=== PATIENT | female | born 1950 | race Caucasian/White ===

== ENCOUNTER → 2017-02-28 11:39 | Outpatient (CLI) | payer MEDICAID ==
[2014-10-14 14:26] VITALS: BMI 35.9
[~2017-02-28 11:39] MED LIST: BAYER CHEWABLE81 MG PO; HYDROCODONE-APA1 TAB PO; IBUPROFEN800 MG PO; NEXIUM40 MG PO; VENTOLIN HFA18 GM INH
== END | disposition home or self-care (01) ==
LOC: D.RAD 11:39
DX: M25.521 Pain in right elbow (principal); M25.532 Pain in left wrist

== ENCOUNTER 2017-03-26 05:21 | Day surgery (SDC) | payer MEDICAID ==
[2017-03-26 06:12] LABS: BASOPHILS 0.8 % (0-2); EOSINOPHILS 1.4 % (0-7); HEMATOCRIT 44.7 % (36.0-48.0); HEMOGLOBIN 15.1 g/dL (12-16); IMMATURE GRANULOCYTES 0.2 % (0-5); LYMPHOCYTES 32.4 % (15-50); MCH 32.5 pg (26.0-34.0); MCHC 33.8 g/dL (31.0-37.0); MCV 96.3 fL (80.0-100.0); MEAN PLATELET VOLUME 10.5 fL (7.4-10.4); MONOCYTES 6.9 % (2-11); NEUTROPHILS 58.3 % (40-80); PLATELET COUNT 222 10x3/uL (130-400); RBC 4.64 10x6/uL (4.00-5.40); RDW 11.7 % (11.5-14.5); WBC 6.4 10x3/uL (4.8-10.8)
[2017-03-26 06:20] LABS: ANION GAP 11.7 mmol/L (8-16); CALCIUM 9.5 mg/dL (8.5-10.1); CARBON DIOXIDE 28.8 mmol/L (21.0-32.0); CREATININE - SERUM 0.9 mg/dL (0.6-1.3); POTASSIUM - SERUM 3.5 mmol/L (3.5-5.1)
[2017-03-26] MEDS ORDERED: NORVASC10 MG PO (06:41)
[2017-03-26] MEDS ORDERED: VITAMIN D5000 UNIT PO (06:42)
[2017-03-26] MEDS ORDERED: ULTRAM50 MG PO (06:42)
[2017-03-26 06:43] VITALS: BP 104/63; BMI 32.7
--- NOTE | 2017-03-26 08:35 | NUR ---
PT REC'D TO ROOM, AWAKE, RESPONDS TO VERBAL STIMULI.
--- NOTE | 2017-03-26 09:05 | NUR ---
PT AMBULATED TO BR, VOIDED AND PASSED GAS. DIET PROVIDED.
--- NOTE | 2017-03-26 09:30 | NUR ---
D/C INSTRUCTIONS EXPLAINED TO PT. VOICED UNDERSTANDING. COPIES OF ALL GIVEN TO PT.
--- NOTE | 2017-03-26 09:40 | NUR ---
D/C'D HOME VIA W/C TO PRIVATE CAR.
--- NOTE | 2017-03-28 14:40 | OP ---
PATIENT NAME: JOEL WHITESIDE MEDICAL RECORD: [id number] :54 LOCATION:[facility] ADMISSION DATE: SURGEON: BASSEM RIOJAS DO DATE OF OPERATION: 03/26/2017 PROCEDURE: Colonoscopy with polypectomy. INDICATIONS FOR PROCEDURE: Screening for colorectal cancer with a history of chronic constipation, currently controlled with a daily stool softener. SCOPE: Olympus video pediatric colonoscope. MEDICATIONS: Propofol 600 mg IV per anesthesia. WITHDRAWAL TIME: 23 minutes. FINDINGS: Informed consent was given. The patient was made comfortable with the above medication. After reaching an adequate level of sedation by slow IV push, the patient was placed on her left side. A digital rectal examination was performed and was normal. The endoscope was then advanced under direct visualization through the rectum to the terminal ileum. The scope was slowly withdrawn. The mucosa was carefully examined. The prep quality was good. There were a total of 6 polyps on this examination. They were all benign appearing and sessile and measured and a ranged from 3-5 mm in diameter. All were removed using hot forceps in 1 piece and completely retrieved. Two polyps were located in the ascending colon, 2 polyps were located in the descending colon, 1 polyp was removed each from the sigmoid and the rectum. Retroflexion was performed in the rectum and visualization, a medium size, nonbleeding internal hemorrhoids. The scope was withdrawn from the patient. The patient tolerated the procedure well and there were no complications. ESTIMATED BLOOD LOSS: Minimal. IMPRESSION: 1. Multiple polyps as described above, removed using hot forceps. 2. Medium size, nonbleeding internal hemorrhoids. PLAN AND RECOMMENDATIONS: 1. Discharge home when recovery parameters are met. 2. Follow up biopsy specimen results. 3. Recommend high fiber diet. 4. Continue daily stools softener as needed for chronic constipation. 5. Recall colonoscopy in 2-3 years for continued surveillance with personal history of polyps for colorectal cancer screening purposes. TRANSINT:[id number] Voice Confirmation ID: [id number] DOCUMENT ID: [id number] OPERATIVE REPORT [id number] JOEL WHITESIDE BASSEM RIOJAS DO at 1440 CC: [id number] DICTATION DATE: 03/26/17829 WATER TREATMENT TECHNICIAN: 03/26/17 1029 [facility] 03/26/17 [facility] [address] [place] [address]
== END 2017-03-26 09:40 | disposition home or self-care (01) ==
LOC: D.OPS 05:21
PROVIDERS: Anesthesiology
DX: Z12.11 Encounter for screening for malignant neoplasm of colon (principal); K59.09 Other constipation; I10 Essential (primary) hypertension; J44.9 Chronic obstructive pulmonary disease, unspecified; G47.33 Obstructive sleep apnea (adult) (pediatric); Z01.812 Encounter for preprocedural laboratory examination; K63.5 Polyp of colon

== ENCOUNTER → 2017-10-02 16:44 | Outpatient (CLI) | payer MEDICARE ==
[~2017-10-02 16:44] MED LIST changes: +NORVASC10 MG PO; +ULTRAM50 MG PO; +VITAMIN D5000 UNIT PO
== END | disposition home or self-care (01) ==
LOC: D.RAD 16:44
DX: F17.210 Nicotine dependence, cigarettes, uncomplicated (principal); J44.9 Chronic obstructive pulmonary disease, unspecified; R05 Cough

== ENCOUNTER → 2018-09-17 09:57 | Outpatient (CLI) | payer MEDICARE | END | disposition home or self-care (01) | LOC: D.US 09:57 | PROVIDERS: ATTEND Emergency Medicine | DX: R55 Syncope and collapse (principal); I10 Essential (primary) hypertension; F17.200 Nicotine dependence, unspecified, uncomplicated ==

== ENCOUNTER → 2019-02-04 08:12 | Outpatient (CLI) | payer MEDICARE | END | disposition home or self-care (01) | LOC: D.US 08:12 | PROVIDERS: ATTEND Emergency Medicine | DX: E03.9 Hypothyroidism, unspecified (principal) ==

== ENCOUNTER → 2020-09-23 10:44 | Outpatient (CLI) | payer MEDICARE | END | disposition home or self-care (01) | LOC: D.LAB 10:44 | PROVIDERS: ATTEND Internal Medicine Pulmonary Disease | DX: Z11.52 Encounter for screening for COVID-19 (principal) ==

== ENCOUNTER → 2020-09-28 07:43 | Outpatient (CLI) | payer MEDICARE ==
[2020-09-28 10:12] LABS: BASOPHILS 0.7 % (0-2); EOSINOPHILS 0.8 % (0-7); HEMATOCRIT 44.9 % (36.0-48.0); HEMOGLOBIN 14.7 g/dL (12-16); IMMATURE GRANULOCYTES 0.3 % (0-5); LYMPHOCYTE ABS# 2.27 10x3/uL (1.18-3.74); LYMPHOCYTES 29.6 % (15-50); MCH 31.7 pg (26.0-34.0); MCHC 32.7 g/dL (31.0-37.0); MCV 96.8 fL (80.0-100.0); MEAN PLATELET VOLUME 10.6 fL (7.4-10.4); MONOCYTES 4.4 % (2-11); NEUTROPHIL ABS# 4.93 10x3/uL (1.56-6.13); NEUTROPHILS 64.2 % (40-80); PLATELET COUNT 250 10x3/uL (130-400); RBC 4.64 10x6/uL (4.00-5.40); RDW 12.5 % (11.5-14.5); WBC 7.7 10x3/uL (4.8-10.8)
[2020-09-30 11:11] LABS: IGG SUBCLASS 1 1228 mg/dL (248-810); IGG SUBCLASS 2 70 mg/dL (130-555); IGG SUBCLASS 3 52 mg/dL (15-102); IGG SUBCLASS 4 14 mg/dL (2-96); IGGS - IGG SERUM 1601 mg/dL (586-1602)
== END | disposition home or self-care (01) ==
LOC: D.RT 07:43
PROVIDERS: ATTEND Internal Medicine Pulmonary Disease
DX: J44.9 Chronic obstructive pulmonary disease, unspecified (principal)